=== PATIENT | male | born 1980 | race Caucasian/White ===

== ENCOUNTER 2017-07-11 14:40 | Emergency (ER) | payer OTHER | END 2017-07-11 15:55 | disposition home or self-care (01) | LOC: ER 14:40 | DX: S39.012A Strain of muscle, fascia and tendon of lower back, initial encounter (principal); M54.12 Radiculopathy, cervical region; Z87.442 Personal history of urinary calculi; X50.0XXA Overexertion from strenuous movement or load, initial encounter; Y93.89 Activity, other specified; Y99.8 Other external cause status; Y92.89 Other specified places as the place of occurrence of the external cause | CPT/HCPCS: 99283 ==

== ENCOUNTER 2017-08-12 21:49 | Emergency (ER) | payer OTHER | END 2017-08-12 22:15 | disposition left against medical advice (07) | LOC: ER 22:15 | DX: Z11.3 Encounter for screening for infections with a predominantly sexual mode of transmission (principal); Z53.21 Procedure and treatment not carried out due to patient leaving prior to being seen by health care provider ==

== ENCOUNTER 2017-11-13 20:00 | Emergency (ER) | payer OTHER ==
[~2017-11-13] VITALS: Ht 175.3 cm; Wt 81.6 kg
[~2017-11-13 20:00] MED LIST: CIPR500T94 PO; CYCL10TA2 PO; METH4TAB2 PO; MUPI22OI2 TP; NAPR-682 PO; NAPR500T8 PO; SULF1TAB24 PO
[2017-11-13 22:28] VITALS: BP 151/93
[2017-11-13] MEDS ORDERED: NAPR-514 PO (23:24)
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
== END 2017-11-13 23:36 | disposition home or self-care (01) ==
LOC: ER 20:00
DX: I73.00 Raynaud's syndrome without gangrene (principal)
CPT/HCPCS: 99282